=== PATIENT | male | born 1935 | race Caucasian/White ===

== ENCOUNTER → 2016-05-13 | Day surgery (SDC) | payer OTHER ==
[~2016-05-13] MED LIST: ALEVE220 M1 PO; ALLOPURINOL300 MG PO; AMBIEN10 MG PO; ANEXSIA 7.5/3251 TA1 PO; BENAZEPRIL HCL40 MG PO; FOLIC ACID1 MG PO; GABAPENTIN300 M2 PO; GABAPENTIN300 MG PO; METHOTREXATE PO; NAPROXEN375 MG PO; PERCOCET5/325 PO; PREDNISONE5 M1 PO; VIT B-12 PO; VITAMIN B12-FO1 EACH PO; ZANTAC150 MG PO; ZOVIRAX200 M1 PO; ZOVIRAX200 MG PO
--- NOTE | ~2016-05-13 | OR ---
Unit #: [id number] #: [id number] Patient: YANCI CHICAS [id number] [facility] [address] [place], [place] [address] [id number] O MR#: [id number] NAME: YANCI CHICAS ROOM: Date of Procedure: 05/13/2016 Admission Date: 05/13/2016 Surgeon: Natanael Grant M.D. : 1935 Attending Physician: Natanael Grant M.D. Primary Care Physician: Osvaldo Marquez M.D. OPERATIVE REPORT PREOPERATIVE DIAGNOSES History of obstructing colon cancer and adenomatous polyps colon. POSTOPERATIVE DIAGNOSES Normal colon and terminal ileum. PROCEDURE PERFORMED Colonoscopy to the ileocolonic anastomosis. ANESTHESIA Monitored anesthesia. INDICATIONS FOR PROCEDURE A 80-year-old gentleman due for surveillance colonoscopy. He has a history of an obstructing colon cancer and adenomatous polyps of colon. DESCRIPTION OF PROCEDURE The patient was admitted to [facility], positively identified, and transported to the endoscopy unit. After appropriate monitoring and positioning, he was sedated by the anesthesiologist. On rectal examination, there was no local anorectal pathology and digital exam was normal. Colonoscope was passed through the anal verge and throughout the extent of the colon to the ileocolonic anastomosis. The anastomosis was widely patent and the terminal ileum was normal for 20 cm. On retrograde visualization, he had a few scattered diverticula, but no polyps, masses, or other lesions. His distal anastomosis was also widely patent with no evidence of any local recurrence. There was no internal hemorrhoidal disease on retroflexing the scope in the rectal vault. The patient tolerated the procedure well and was transported to recovery in stable condition. Findings and postoperative instructions were discussed with his . Dictated by... Natanael Grant M.D. RS/gila TD: 05/13/2016 23:31 JOB #: [id number] Unit #: [id number] #: [id number] Patient: YANCI CHICAS OPERATIVE REPORT X Natanael Grant MD PROCEDURE OPERATIVE NOTE
--- NOTE | ~2016-05-13 | HP ---
Unit #: [id number] #: [id number] Patient: YANCI MONTANO [id number] [address] [address] [id number] O MR#: [id number] NAME: YANCI MONTANO ROOM: Age: 80 Sex: M Admission Date: 05/13/2016 : 1935 Attending Physician: Natanael Grant M.D. Primary Care Physician: Osvaldo Marquez M.D. HISTORY AND PHYSICAL HISTORY OF PRESENT ILLNESS Mr. Montano is a very pleasant 80-year-old gentleman who has had a history of obstructing colon cancer and adenomatous polyps of the colon. He is due for surveillance colonoscopy. PAST MEDICAL HISTORY 1. Colon cancer. 2. Osteoarthritis. 3. Herpes virus. 4. Post herpetic neuropathy. 5. Hypertension. 6. Gout. SOCIAL HISTORY with one child. Denies the use of alcohol or tobacco. 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 FAMILY HISTORY Father of cancer, primary unknown. Mother of heart disease. ALLERGIES No known drug allergies. CURRENT MEDICATIONS 1. Benazepril. 2. Naproxen. 3. Zovirax. 4. Methotrexate. 5. Zantac. 6. Vitamin B12. 7. Neurontin. 8. Allopurinol. 9. Ambien. 10. Folic acid. 11. Aleve. 12. Prednisone. 13. Percocet. IMMUNIZATIONS Not up to date. REVIEW OF SYSTEMS Unremarkable. Unit #: [id number] #: [id number] Patient: YANCI MONTANO PHYSICAL EXAMINATION GENERAL: He is awake, alert and oriented. He is very hard of hearing. In fact, he is declared legally deaf. VITALS: Temperature 98.1, blood pressure 105/68, heart rate 88 and regular, respiratory rate 18, O2 saturations 97% on room air. HEENT: Unremarkable. HEART: Regular rhythm. ABDOMEN: Soft. EXTREMITIES: No edema. NEUROLOGIC: Grossly intact. ASSESSMENT/PLAN The patient is a 80-year-old gentleman with a history of colon cancer and adenomatous polyps of the colon, due for surveillance colonoscopy. We discussed the procedure including risks, benefits, complications and bowel prep. He understands and agrees to proceed. Dictated by Natanael Grant M.D. RS/gz TD: 05/13/2016 14:33 JOB #: [id number] HISTORY AND PHYSICAL X Natanael Grant MD HISTORY AND PHYSICAL
== END | disposition home or self-care (01) ==
LOC: COPS 11:31
DX: Z12.11 Encounter for screening for malignant neoplasm of colon (principal); K57.30 Diverticulosis of large intestine without perforation or abscess without bleeding; Z85.038 Personal history of other malignant neoplasm of large intestine; Z86.010 Personal history of colon polyps; Z90.49 Acquired absence of other specified parts of digestive tract; M10.9 Gout, unspecified; Z79.899 Other long term (current) drug therapy; Z80.9 Family history of malignant neoplasm, unspecified
CPT/HCPCS: 82378

== ENCOUNTER → 2016-08-27 | Outpatient (CLI) | payer OTHER | END | disposition home or self-care (01) | LOC: CLAB 14:06 | DX: C18.9 Malignant neoplasm of colon, unspecified (principal) | CPT/HCPCS: 36415; 82378 ==